=== PATIENT | female | born 1965 | race Asian ===

== ENCOUNTER 2016-08-03 21:14 | Emergency (ER) | payer SELFPAY ==
[~2016-08-03] VITALS: Ht 147.3 cm; Wt 50.0 kg
[~2016-08-03 21:14] MED LIST: ENAL5TAB38 PO; FERRF325 PO; FEXO180 PO; HYDR-3133 PO; TOPR50TA PO; ZOCO40TA PO; ZOLP10TA3 PO
[2016-08-03 21:15] VITALS: BP 157/83; PULSE 72; RESP 20; TEMP 97.8; O2SAT 96
== END 2016-08-03 22:46 | disposition left against medical advice (07) ==
LOC: NED 21:14
DX: R10.9 Unspecified abdominal pain (principal)
CPT/HCPCS: 99281

== ENCOUNTER → 2017-07-11 | Day surgery (SDC) | payer OTHER ==
[~2017-07-11] VITALS: Ht 147.3 cm; Wt 50.0 kg
[~2017-07-11] MED LIST changes: +AMLO2.5T PO; +CHLORHEXIDINE GLUCONATE 2 % 1 PACK (2 CLOTHS) TOPICAL PRN; +CLON0.5T PO; -ENAL5TAB38 PO; -FERRF325 PO; -FEXO180 PO; +HYALURONIDASE/LIDOCAINE/BUPIVACAINE 5 ML SYR ONE; -HYDR-3133 PO; +LACTATED RINGER'S 1000 ML IV PRN; +LOSA100T PO; +METOPROLOL TARTRATE 25 MG TAB PO PRN; +MIRT30TA PO; +OMEP20TA93 PO; +POVIDONE IODINE 5% (ANTISEPSIS KIT) 4 APPLICATIONS EACH NARE PRN; +PROPARACAINE HCL 0.5% OPHT SOLN 15 ML BTL LEFT EYE ONE; +PROPOFOL 200 MG/20 ML AMP ONE; +REFRDRO EACH EYE; +SODIUM CHLORID 0.9% 500 ML IV PRN; +TOBRAMYCIN/DEXAMETHASONE OPTH OINT 3.5 GM TUBE ONE; -TOPR50TA PO; -ZOCO40TA PO; -ZOLP10TA3 PO
[2017-07-11 08:18] VITALS: PULSE 83
[2017-07-11] MEDS: PHENYLEPHRINE HCL 10% OPTH SOLN 5 ML BTL LEFT EYE SCH ×4 (08:20→08:35)
[2017-07-11] MEDS: CYCLOPENTOLATE HCL 1% OPHT SOLN 2 ML BTL LEFT EYE SCH ×4 (08:20→08:35)
[2017-07-11] MEDS: FLURBIPROFEN 0.03% OPHT SOLN 2.5 ML BTL LEFT EYE SCH ×4 (08:20→08:35)
[2017-07-11] MEDS: TROPICAMIDE 1% OPHT SOLN 15 ML BTL LEFT EYE SCH ×4 (08:20→08:35)
[2017-07-11 09:02] VITALS: PULSE 66
[2017-07-11 10:00] VITALS: BP 157/99; PULSE 69; RESP 16; O2SAT 98
--- NOTE | 2017-07-11 10:08 | MP ---
cc: EUGENIO JUAREZ M.D. [facility] #: [id number] DATE: July 11, 2017 PREOPERATIVE DIAGNOSIS: Visually significant cataract left eye. POSTOPERATIVE DIAGNOSIS: Visually significant cataract left eye. OPERATION: Phacoemulsification with posterior chamber lens implantation, left eye. SURGEON: Eugenio Juarez MD ANESTHESIA: Retrobulbar with MAC. COMPLICATIONS: None. PROCEDURE: After informed consent was obtained, the patient was brought into the operative suite and placed on appropriate monitors by the Anesthesia Service. The patient had received a prior retrobulbar injection of local anesthetic by the Anesthesia Service in the holding area. The patient's operative eye was then prepped and draped in the usual sterile fashion. A wire lid speculum was placed. A paracentesis incision was made in the peripheral cornea with a 1 mm suellen keratome. The anterior chamber was filled with viscoelastic. The anterior chamber was then entered through a stepped, clear corneal incision using a sharp 3 mm suellen keratome. A circular tear capsulorrhexis was then made with a bent needle cystitome. Following hydrodissection of the lens nucleus with balanced saline, phacoemulsification of the nucleus was performed using a modified chopping technique. The remaining cortex was removed with irrigation/aspiration. The prior two procedures were both performed using the handpieces of the [employer] phaco unit. The capsular bag was then filled with viscoelastic. The intraocular lens was then injected into the capsular bag and positioned. The type of intraocular lens and its power can be found elsewhere in this chart. The remaining viscoelastic was then removed from the anterior chamber with the IA handpiece. The anterior chamber was reformed with balanced saline. The wound was then closed securely with stromal hydration. It was found to be watertight to an intraocular pressure of at least 30 mmHg by palpation. A small amount of balanced salt solution was then removed through the paracentesis site and the intraocular pressure at the end of the case was approximately 20 by palpation. All drapes were then removed. TobraDex ointment was then placed in the eye, which was closed beneath a semi-pressure patch dressing. The patient tolerated this procedure well and left the operating room awake and alert. The patient is to follow-up in my office in the morning. MD HELENE Gomez/SSB /9:53 AM /10:04 AM
== END | disposition home or self-care (01) ==
LOC: PHSDC 06:49
PROVIDERS: ATTEND Optometrist Occupational Vision
DX: H25.812 Combined forms of age-related cataract, left eye (principal); H04.123 Dry eye syndrome of bilateral lacrimal glands; I10 Essential (primary) hypertension
CPT/HCPCS: 00142; 66984; J7040; V2632